=== PATIENT | female | born 1995 | race African-American/Black ===

== ENCOUNTER 2025-01-09 13:19 | Emergency (ER) | payer OTHER ==
[~2025-01-09] VITALS: Ht 167.6 cm; Wt 61.0 kg
[2025-01-09] MEDS: METHYLPREDNISOLONE SOD SUCC 125MG/2ML (ACT-O-VIAL) IV ONE (13:48)
[2025-01-09] MEDS: MAGNESIUM 2 G PREMIX 50 ML IV ONE (13:48)
[2025-01-09] MEDS: IPRATROPIUM BROMIDE (0.02%) 0.5MG/2.5ML NEB HHN SCH (14:00)
[2025-01-09] MEDS: ALBUTEROL (0.083%) 2.5MG/3ML NEB HHN SCH (14:00)
[2025-01-09 14:01] VITALS: PULSE 104; RESP 13; O2SAT 98
[2025-01-09 14:03] LABS: BASOPHILS % 0.6 % (0.0-2.0); EOSINOPHILS % 6.1 % (0.0-5.0); HEMATOCRIT. 40.4 % (36.0-48.0); HEMOGLOBIN. 13.6 g/dL (12.0-16.0); LYMPHOCYTES % 26.6 % (20.0-50.0); MEAN PLATELET VOLUME 7.0 fl (7.4-10.4); MONOCYTES % 5.6 % (2.0-8.0); NEUTROPHILS % 61.1 % (40.0-76.0); PLATELET 345 x1000/uL (130-400); RED BLOOD CELL COUNT 4.65 mill/uL (4.2-5.4); RED CELL DISTRIBUTION WIDTH 13.4 % (11.6-14.6)
[2025-01-09 14:22] LABS: CREATININE 1.0 mg/dL (0.6-1.0); UREA NITROGEN BLOOD 10 mg/dL (9-23)
[2025-01-09 14:26] LABS: HCG SCREEN NEGATIVE
[2025-01-09] MEDS ORDERED: P50 MT (15:26)
[2025-01-09] MEDS ORDERED: ALBU05 NEB (15:26)
[2025-01-09 15:32] VITALS: BP 104/70; PULSE 95; RESP 24; TEMP 37.1; O2SAT 100
== END 2025-01-09 15:45 | disposition home or self-care (01) ==
LOC: ER 14:03 → CMPBEDREQ 01-10 09:00
DX: J45.901 Unspecified asthma with (acute) exacerbation (principal)
CPT/HCPCS: 80048; 84703; 85025; 36415; 71045; 94640; 93005; 96365; 96375; 99291; J3475; J2919; Z7610 ×3; 94070; 94664; 98960